=== PATIENT | male | born 1980 | race Caucasian/White ===

== ENCOUNTER 2017-01-28 08:05 | Emergency (ER) | payer BC, OTHER ==
--- NOTE | 2017-01-28 08:21 | ED.PDOC ---
History of Present Illness - General Chief Complaint: Dental/Mouth Stated Complaint: toothache Time Seen by Provider: 01/28/17 08:20 Source: patient Exam Limitations: no limitations - History of Present Illness Initial Comments: Fredi Almeida 36 y/o male stated that for the last 2 weeks he had been having toothache left upper gum painful to chew on the area. Timing/Duration: intermittent, other - 1 1/2 weeks EENT Location: dental Prearrival Treatment: no prearrival treatment Presenting Symptoms: toohtache Improving Factors: nothing Worsening Factors: eating Associated Symptoms: tooth pain Allergies/Adverse Reactions: Allergies NO KNOWN ALLERGY Allergy (Verified 01/28/17 08:21) Home Medications: Ambulatory Orders Acetaminophen W/ Codeine [Tylenol w/Codeine 300-30 mg] 1 tab PO Q8HRS #14 tab Clindamycin HCl 300 mg PO BID #40 cap 01/28/17 Review of Systems - Review of Systems All other Systems: Reviewed and Negative, No Change from Baseline Past Medical History (General) - Patient Medical History Hx Stroke: No Hx Congestive Heart Failure: No Hx Diabetes: No - Vaccination History Hx Influenza Vaccination: No - Social History Hx Tobacco Use: No Family Medical History - Family History Mother Living Status: Still Living Hx Family Diabetes: Yes Physical Exam - Physical Exam General Appearance: Alert, Comfortable, No apparent distress Eye Exam: bilateral normal Ear Exam: bilateral ear: auricle normal, canal normal Nasal Exam: normal inspection Throat Exam: normal mouth inspection, pharynx normal, dental tenderness - left 3rd molar-with partial fiilling broken Neck: non-tender, supple Cardiovascular/Respiratory: regular rate, rhythm, no M/R/G, normal peripheral pulses Abdominal Exam: non-tender, no organomegaly Neurologic: alert, oriented x 3 Skin Exam: normal color, warm/dry Progress - Progress Progress: 01/28/17 08:37 Last Vital Signs Temp 97.8 F 01/28/17 08:15 Pulse 88 01/28/17 08:15 Resp 16 01/28/17 08:15 BP 127/88 01/28/17 08:15 Pulse Ox 97 01/28/17 08:15 Departure - Departure Clinical Impression: Pain due to dental caries, Dental caries extending into pulp Time of Disposition: 08:39 Disposition: Discharge to Home or Self Care Condition: Good Departure Forms: ED Discharge - Pt. Copy, Patient Portal Self Enrollment Instructions: DI for Dental Pain Diet: other - SOFT DIET until BETTER Prescriptions: Acetaminophen W/ Codeine [Tylenol w/Codeine 300-30 mg] 1 tab PO Q8HRS #14 tab Clindamycin HCl 300 mg PO BID #40 cap Home Medications: Ambulatory Orders Acetaminophen W/ Codeine [Tylenol w/Codeine 300-30 mg] 1 tab PO Q8HRS #14 tab Clindamycin HCl 300 mg PO BID #40 cap 01/28/17 Additional Instructions: NEED TO CALL UP YOUR DENTIST TODAY 01/28/2017 FOR FOLLOW UP
[2017-01-28 08:29] VITALS: BP 127/88; TEMP 97.8; O2SAT 97
[2017-01-28] MEDS ORDERED: TETANUS,DIPHTHERIA,PERTUSSIS 1 EA SYG IM ONE (08:37)
[2017-01-28] MEDS ORDERED: CLINDAMYCIN HCL CAP 150 MG CAP PO ONE (08:37)
== END 2017-01-28 08:58 | disposition home or self-care (01) ==
LOC: ER 08:05
DX: K02.9 Dental caries, unspecified (principal); Z23 Encounter for immunization

== ENCOUNTER 2020-04-04 11:38 | Emergency (ER) | payer OTHER | END 2020-04-04 12:20 | disposition left against medical advice (07) | LOC: ER 11:38 | DX: K08.89 Other specified disorders of teeth and supporting structures (principal); Z53.21 Procedure and treatment not carried out due to patient leaving prior to being seen by health care provider ==